=== PATIENT | female | born 1940 | race Caucasian/White ===

== ENCOUNTER 2017-02-12 15:09 | Emergency (ER) | payer MEDICARE ==
[2012-03-30 23:57] VITALS: BMI 25.1
[2017-02-12 16:14] LABS: BASOPHILS 0.2 % (0-2); EOSINOPHILS 0.1 % (0-7); HEMATOCRIT 44.1 % (36.0-48.0); HEMOGLOBIN 15.1 g/dL (12-16); IMMATURE GRANULOCYTES 0.3 % (0-5); LYMPHOCYTES 35.6 % (15-50); MCHC 34.2 g/dL (31.0-37.0); MCV 87.7 fL (80.0-100.0); MEAN PLATELET VOLUME 9.2 fL (7.4-10.4); MONOCYTES 7.2 % (2-11); NEUTROPHILS 56.6 % (40-80); RBC 5.03 10x6/uL (4.00-5.40); RDW 12.5 % (11.5-14.5); WBC 9.1 10x3/uL (4.8-10.8)
[2017-02-12 16:25] LABS: ALBUMIN 3.4 g/dL (3.4-5.0); ANION GAP 14.2 mmol/L (8-16); BILIRUBIN - TOTAL 0.4 mg/dL (0.2-1.3); CALCIUM 8.8 mg/dL (8.5-10.1); CARBON DIOXIDE 25.9 mmol/L (21.0-32.0); POTASSIUM - SERUM 4.1 mmol/L (3.5-5.1); PROTEIN - SERUM 7.9 g/dL (6.4-8.2)
[2017-02-12 16:28] LABS: PLATELET COUNT 293 10x3/uL (130-400)
[2017-02-12 16:43] LABS: APPEARANCE HAZY (CLEAR); BILIRUBIN NEGATIVE (NEGATIVE); COLOR YELLOW (YELLOW); GLUCOSE 1000 mg/dL (NEGATIVE); KETONE NEGATIVE (NEGATIVE); NITRITE POSITIVE (NEGATIVE); PROTEIN NEGATIVE (NEGATIVE); UROBILINOGEN NORMAL (NORMAL)
[2017-02-12 16:45] LABS: BACTERIA MANY /hpf (NONE SEEN); EPITHELIAL CELLS 0-5 /hpf (0-5); RED CELLS - URINE 0-5 /hpf (0-5); WHITE CELLS - URINE >50 /hpf (0-5)
== END 2017-02-12 17:12 | disposition home or self-care (01) ==
LOC: D.ER 15:09
PROVIDERS: Family Medicine
DX: R53.1 Weakness (principal); N39.43 Post-void dribbling; E11.9 Type 2 diabetes mellitus without complications; Z79.4 Long term (current) use of insulin; I10 Essential (primary) hypertension; N39.0 Urinary tract infection, site not specified; R10.2 Pelvic and perineal pain; F17.200 Nicotine dependence, unspecified, uncomplicated

== ENCOUNTER → 2017-03-12 21:44 | Outpatient (CLI) | payer MEDICARE ==
[2012-03-30 23:57] VITALS: BMI 25.1
== END | disposition home or self-care (01) ==
LOC: D.LABREF 21:44
DX: N39.0 Urinary tract infection, site not specified (principal)

== ENCOUNTER → 2017-03-27 08:46 | Outpatient (CLI) | payer MEDICARE ==
[2012-03-30 23:57] VITALS: BMI 25.1
[2017-03-28 11:15] LABS: ANA REFLEX - DIRECT Negative (Negative)
[2017-03-29 16:13] LABS: ANCA - ANTIMYELOPEROXIDASE <9.0 U/mL (0.0-9.0); ANCA - ANTIPROTEINASE 3 <3.5 U/mL (0.0-3.5); ANCA - ATYPICAL <1:20 titer (Neg:<1:20); ANCA - CYTOPLASMIC <1:20 titer (Neg:<1:20); ANCA - PERINUCLEAR <1:20 titer (Neg:<1:20)
== END | disposition home or self-care (01) ==
LOC: D.RT 08:46
PROVIDERS: Internal Medicine Pulmonary Disease
DX: J84.9 Interstitial pulmonary disease, unspecified (principal)

== ENCOUNTER → 2017-04-03 17:23 | Outpatient (CLI) | payer MEDICARE ==
[2012-03-30 23:57] VITALS: BMI 25.1
== END | disposition home or self-care (01) ==
LOC: D.LABREF 17:23
DX: N39.0 Urinary tract infection, site not specified (principal)

== ENCOUNTER → 2017-06-07 09:42 | Outpatient (CLI) | payer MEDICARE ==
[2012-03-30 23:57] VITALS: BMI 25.1
[2017-06-12 21:08] LABS: IMMUNOGLOBULIN E 11 IU/mL (0-100)
== END | disposition home or self-care (01) ==
LOC: D.RAD 09:42
PROVIDERS: Internal Medicine Pulmonary Disease
DX: J84.9 Interstitial pulmonary disease, unspecified (principal)

== ENCOUNTER → 2017-09-28 10:29 | Outpatient (CLI) | payer MEDICARE ==
[2012-03-30 23:57] VITALS: BMI 25.1
== END | disposition home or self-care (01) ==
LOC: D.CT 10:29
DX: J84.9 Interstitial pulmonary disease, unspecified (principal)

== ENCOUNTER → 2018-03-07 12:01 | Outpatient (CLI) | payer MEDICARE ==
[2012-03-30 23:57] VITALS: BMI 25.1
[2018-03-07 13:25] LABS: APPEARANCE SL CLDY (CLEAR); BILIRUBIN NEGATIVE (NEGATIVE); COLOR YELLOW (YELLOW); GLUCOSE 1000 mg/dL (NEGATIVE); KETONE NEGATIVE (NEGATIVE); NITRITE NEGATIVE (NEGATIVE); PROTEIN NEGATIVE (NEGATIVE); UROBILINOGEN NORMAL (NORMAL)
[2018-03-07 13:26] LABS: BACTERIA MANY /hpf (NONE SEEN); EPITHELIAL CELLS 0-5 /hpf (0-5); MUCUS <1+ /lpf (NONE SEEN); RED CELLS - URINE 0-5 /hpf (0-5); YEAST <1+ /hpf (NONE SEEN)
[2018-03-09 03:12] LABS: ANGIOTENSIN CONVERTING ENZYME 61 U/L (14-82)
== END | disposition home or self-care (01) ==
LOC: D.LABREF 12:01
PROVIDERS: Internal Medicine Pulmonary Disease
DX: R91.8 Other nonspecific abnormal finding of lung field (principal)

== ENCOUNTER → 2018-06-20 07:55 | Outpatient (CLI) | payer MEDICARE ==
[2012-03-30 23:57] VITALS: BMI 25.1
== END | disposition home or self-care (01) ==
LOC: D.CT 07:55
PROVIDERS: ATTEND Internal Medicine Pulmonary Disease
DX: R91.8 Other nonspecific abnormal finding of lung field (principal)

== ENCOUNTER → 2019-06-16 10:13 | Outpatient (CLI) | payer MEDICARE ==
[2012-03-30 23:57] VITALS: BMI 25.1
== END | disposition home or self-care (01) ==
LOC: D.CT 10:13
PROVIDERS: ATTEND Internal Medicine Pulmonary Disease
DX: R91.8 Other nonspecific abnormal finding of lung field (principal)